=== PATIENT | male | born 1995 | race Hispanic/Latino ===

== ENCOUNTER → 2024-01-12 | Emergency (ER) | payer SELFPAY ==
[~2024-01-12] MED LIST: FAMOTIDINE 20 MG/2 ML VIAL IV ONE; KETOROLAC 30 MG/ML INJ ONE; MAGNES/ALUMIN/SIMET 30ML UCUP ONE; NA CHLORIDE 0.9% 1,000 ML ONE
[2024-01-12 01:21] LABS: Absolute Lymphocytes (CBC) 3.8 K/uL (0.7-4.9); Hematocrit 49.1 % (39.6-49.0); MCV 84.1 fL (80-100); MPV 9.4 fL (7.6-11.3); Platelets 254 thou/uL (152-406); RBC Red Blood Cell Count 5.85 M/uL (4.33-5.43)
[2024-01-12 01:29] LABS: ALT/SGPT 24 U/L (16-61); AST/SGOT 5 U/L (15-37); Alkaline Phosphatase 115 U/L (45-117); BUN Blood Urea Nitrogen 16 mg/dL (7-18); Bicarbonate 25 mEq/L (21-32); Bilirubin Direct 0.2 mg/dL (0-0.2); Bilirubin Indirect, Calculated 0.3 mg/dL (0.2-0.8); Bilirubin Total 0.5 mg/dL (0.2-1.0); Glomerular Filtration Rate 89 ml/min (=/>90); Glucose Level 119 mg/dL (74-106); Lipase 18 U/L (13-75); Magnesium 1.9 mg/dL (1.6-2.4); Potassium 3.5 mEq/L (3.5-5.1); Protein, Total 8.3 g/dL (6.4-8.2); Sodium Level 137 mEq/L (136-145)
[2024-01-12 01:30] LABS: Troponin High Sensitivity < 3.0 pg/mL (<58.9)
--- NOTE | 2024-01-12 02:39 | EDPHYS ---
Physician Documentation [facility] Name: Magen Villa Age: 28 yrs Sex: Male : 1995 Arrival Date: 01/12/2024 Time: 00:52 Bed 19 Private MD: ED Physician Slim Millard HPI: 01/12 01:26 This 28 yrs old Male presents to ER via Ambulatory with complaints of Chest rt Pain. 01:26 Patient presents to the ED with reported chest pains for about 1 month. They are worse rt when he lies down. Patient reports nausea and vomiting earlier today, none currently. Denies any abdominal pain. Of note, patient drinks about 6 beers per day. He denies other acute complaints at this time, symptoms are moderate in severity, no other aggravating or alleviating factors.. Historical: - Allergies: : No Known Allergies; lg3 - Home Meds: : None [Active]; lg3 - PMHx: : None; lg3 - PSHx: : None; lg3 - Immunization history:: Adult Immunizations up to date, Client reports receiving the 2nd dose of the Covid vaccine, Flu vaccine is not up to date. - Social history:: Smoking status: Patient reports the use of cigarette tobacco products, smokes one pack cigarettes per day. Reported history of juuling and/or vaping. Patient uses alcohol, on a daily basis. claims drinking about a 6 pack/day. patient/guardian reports chronic longstanding heavy alcohol consumption. Patient/guardian denies using street drugs. - Family history:: not pertinent. ROS: 01:26 Constitutional: Negative for fever, chills, and weight loss, Respiratory: Negative for rt shortness of breath, cough, wheezing, and pleuritic chest pain, MS/Extremity: Negative for injury and deformity, Skin: Negative for injury, rash, and discoloration, Neuro: Negative for headache, weakness, numbness, tingling, and seizure, Psych: Negative for depression, anxiety, suicide ideation, homicidal ideation, and hallucinations, : Cardiovascular: Positive for chest pain, Negative for edema, : Abdomen/GI: Positive for nausea and vomiting, Negative for abdominal pain, Exam: : Constitutional: This is a well developed, well nourished patient who is awake, alert, rt and in no acute distress. Head/Face: Normocephalic, atraumatic. Chest/axilla: Normal chest wall appearance and motion. Nontender with no deformity. No lesions are appreciated. Cardiovascular: Regular rate and rhythm with a normal S1 and S2. No gallops, murmurs, or rubs. Normal PMI, no JVD. No pulse deficits. Respiratory: Lungs have equal breath sounds bilaterally, clear to auscultation and percussion. No rales, rhonchi or wheezes noted. No increased work of breathing, no retractions or nasal flaring. Abdomen/GI: Soft, non-tender, with normal bowel sounds. No distension or tympany. No guarding or rebound. No evidence of tenderness throughout. Skin: Warm, dry with normal turgor. Normal color with no rashes, no lesions, and no evidence of cellulitis. MS/ Extremity: Pulses equal, no cyanosis. Neurovascular intact. Full, normal range of motion. Neuro: Awake and alert, GCS 15, oriented to person, place, time, and situation. Cranial nerves II-XII grossly intact. Motor strength 5/5 in all extremities. Sensory grossly intact. Cerebellar exam normal. Normal gait. 01:26 ECG was reviewed by the Attending Physician. Vital Signs: 00:59 BP 146 / 97; Pulse 111; Resp 19 S; Temp 97.6(TE); Pulse Ox 99% on R/A; Weight 77.11 kg lg3 (R); Height 5 ft. 11 in. (R); 01:39 BP 141 / 93; Pulse 98; Resp 19; Pulse Ox 100% on R/A; tm6 02:30 BP 135 / 91; Pulse 93; Resp 14; Pulse Ox 96% on R/A; Pain 3/10; tm6 02:44 BP 135 / 91; Pulse 88; Resp 17; Temp 98.5; Pulse Ox 98% on R/A; Pain 2/10; tm6 00:59 Body Mass Index 23.71 (77.11 kg, 180.34 cm) lg3 02:30 Pain Scale: Adult tm6 02:44 Pain Scale: Adult tm6 MDM: 00:54 Patient medically screened. rt 03:43 Differential diagnosis: Gastritis, nonspecific chest pain, pancreatitis, acute coronary rt syndrome. HEART Score: History: Slightly Suspicious (0), ECG: Normal (0), Age: < or = 45 years (0), Risk Factors: 1 or 2 risk factors (1), Troponin: < or = 1 x Normal Limit (0), Total Score = 1. Data reviewed: vital signs, nurses notes, lab test result(s), EKG, radiologic studies. I considered the following discharge prescriptions or medication management in the emergency department Medications were administered in the Emergency Department. See MAR. Independent interpretation of the following test(s) in the Emergency Department X-Ray: My interpretation is No consolidation seen on interpretation of x-ray images. Test considered but Not performed: CT: Low suspicion for PE, CT angiogram not indicated. Care significantly affected by the following Social Determinants of Health: Misuse of alcohol and/or drugs. Counseling: I had a detailed discussion with the patient and/or guardian regarding the historical points, exam findings, and any diagnostic results supporting the discharge/admit diagnosis, lab results, radiology results, the need for outpatient follow up, to return to the emergency department if symptoms worsen or persist or if there are any questions or concerns that arise at home. Response to treatment: the patient's symptoms have resolved after treatment. 01/12 00:59 Order name: Basic Metabolic Panel; Complete Time: rt 01/12 00:59 Order name: CBC with Diff; Complete Time: rt 01/12 00:59 Order name: LFT's; Complete Time: : rt 01/12 00:59 Order name: Magnesium; Complete Time: : rt 01/12 00:59 Order name: Troponin HS; Complete Time: : rt 01/12 00:59 Order name: Lipase; Complete Time: : rt 01/12 00:59 Order name: XRAY Chest (1 view) rt 01/12 00:59 Order name: EKG; Complete Time: : rt 01/12 00:59 Order name: Cardiac monitoring; Complete Time: : rt 01/12 00:59 Order name: EKG - Nurse/Tech; Complete Time: 01:05 rt 01/12 00:59 Order name: IV Saline Lock; Complete Time: 01: rt 01/12 00:59 Order name: Labs collected and sent; Complete Time: 01: rt 01/12 00:59 Order name: O2 Per Protocol; Complete Time: 01: rt 01/12 00:59 Order name: O2 Sat Monitoring; Complete Time: : rt EC: Rate is 103 beats/min. Rhythm is regular, Sinus tachycardia with Right bundle branch rt block. Right axis deviation noted. MO interval is normal. QRS interval is normal. QT interval is normal. No Q waves. No ST changes noted. Administered Medications: 01:03 Drug: NS 0.9% IV 1000 ml IV at 1 bolus Per protocol; 1000 mL bolus Route: IV; Rate: 1 mb9 bolus; Site: left antecubital; 02:00 Follow up: Response: No adverse reaction; IV Status: Completed infusion; IV Intake: tm6 1000ml 01:04 Drug: Ketorolac IVP 15 mg IVP once Route: IVP; Site: left antecubital; mb9 01:09 Drug: Alum-Mag Hydroxide-Simeth PO Suspension (200 mg-200 mg-20 mg/5 mL) 30 ml PO once mb9 Route: PO; 01: Drug: Famotidine IVP 20 mg IVP once; dilute with 10 mL 0.9% NaCl; give over 2 minutes mb9 Route: IVP; Site: left antecubital; Disposition Summary: 01/12/24 02:38 Discharge Ordered Notes: Location: Home rt Problem: new rt Symptoms: have improved rt Condition: Stable rt Diagnosis - Acute gastritis rt Followup: rt - With: Rogers Reynoso DO - When: 2 - 3 days - Reason: Discharge Instructions: - Discharge Summary Sheet rt - Gastritis, Adult rt Forms: - Medication Reconciliation Form rt - Thank You Letter rt - Antibiotic Education rt - Prescription Opioid Use rt - Patient Portal Instructions rt - Leadership Thank You Letter rt Prescriptions: - Protonix 40 mg Oral Tablet - take 1 tablet ORAL route once daily; 30 tablet; Refills: 0, Product Selection rt Permitted Signatures: Dispatcher [employer] Pilar Ribera RN RN lg3 Marie Shaw RN RN mb9 Slim Millard MD MD rt Audrey Orta RN tm6
--- NOTE | 2024-01-12 02:39 | ER ---
Nurse's Notes [facility] Name: Magen Villa Age: 28 yrs Sex: Male : 1995 Arrival Date: 01/12/2024 Time: 00:52 Bed 19 Private MD: Diagnosis: Acute gastritis Presentation: 01/12 00:59 Chief complaint: Patient states: chest pain/pressure and increased HR X1 month lg3 worsening at night. exacerbated by laying down. Coronavirus screen: Client denies travel out of the [place] in the last 14 days. At this time, the client does not indicate any symptoms associated with coronavirus-19. Ebola Screen: No symptoms or risks identified at this time. Initial Sepsis Screen: Does the patient meet any 2 criteria? No. Patient's initial sepsis screen is negative. Does the patient have a suspected source of infection? No. Patient's initial sepsis screen is negative. Risk Assessment: Do you want to hurt yourself or someone else? Patient reports no desire to harm self or others. Onset of symptoms is unknown. 00:59 Method Of Arrival: Ambulatory lg3 00:59 Acuity: RON 3 lg3 Triage Assessment: 01:01 General: Appears in no apparent distress. uncomfortable, Behavior is cooperative, lg3 anxious. Pain: Complains of pain in chest Pain does not radiate. Pain currently is 4 out of 10 on a pain scale. EENT: No deficits noted. No signs and/or symptoms were reported regarding the EENT system. Neuro: No deficits noted. Frazier Agitation-Sedation Scale (RASS): 0 - Alert and Calm Level of Consciousness is awake, alert, obeys commands, Oriented to person, place, time, situation. Cardiovascular: Reports chest pain, palpitations, Heart tones S1 S2 present Capillary refill < 3 seconds Clubbing of nail beds is absent JVD is absent Chest pain is described as mild, quality is heaviness, pressure, is located in substernal area episodes are intermittent. Respiratory: No deficits noted. Airway is patent Respiratory effort is even, unlabored, Respiratory pattern is regular, symmetrical. GI: No deficits noted. Abdomen is round non-distended, Bowel sounds present X 4 quads. : No deficits noted. No signs and/or symptoms were reported regarding the genitourinary system. Derm: No signs and/or symptoms reported regarding the dermatologic system. Skin is intact, is healthy with good turgor, Skin is clammy, Skin is pale, Skin temperature is cool. Musculoskeletal: No deficits noted. No signs and/or symptoms reported regarding the musculoskeletal system. Circulation, motion, and sensation intact. Range of motion: intact in all extremities. Historical: - Allergies: 01:01 No Known Allergies; lg3 - Home Meds: 01:01 None [Active]; lg3 - PMHx: 01: None; lg3 - PSHx: 01:01 None; lg3 - Immunization history:: Adult Immunizations up to date, Client reports receiving the 2nd dose of the Covid vaccine, Flu vaccine is not up to date. - Social history:: Smoking status: Patient reports the use of cigarette tobacco products, smokes one pack cigarettes per day. Reported history of juuling and/or vaping. Patient uses alcohol, on a daily basis. claims drinking about a 6 pack/day. patient/guardian reports chronic longstanding heavy alcohol consumption. Patient/guardian denies using street drugs. - Family history:: not pertinent. Screenin:43 [facility] ED Fall Risk Assessment (Adult) History of falling in the last 3 months, tm6 including since admission No falls in past 3 months (0 pts) Confusion or Disorientation No (0 pts) Intoxicated or Sedated No (0 pts) Impaired Gait No (0 pts) Mobility Assist Device Used No (0 pt) Altered Elimination No (0 pt) Score/Fall Risk Level 0 - 2 = Low Risk Oriented to surroundings, Maintained a safe environment. Abuse screen: Denies threats or abuse. Denies injuries from another. Nutritional screening: No deficits noted. Tuberculosis screening: No symptoms or risk factors identified. Assessment: 01:39 General: Appears in no apparent distress. Behavior is calm, cooperative. Pain: tm6 Complains of pain in chest. Pain: Pain currently is 5 out of 10 on a pain scale. Quality of pain is described as squeezing, Pain began 1 day ago. Neuro: Level of Consciousness is awake, alert, obeys commands, Oriented to person, place, time, situation. Cardiovascular: Reports chest pain, Capillary refill < 3 seconds Patient's skin is warm and dry. Rhythm is sinus tachycardia. Respiratory: Airway is patent Respiratory effort is even, unlabored, Respiratory pattern is regular, symmetrical. GI: Abdomen is flat, non-distended, Abd is soft and non tender. : No signs and/or symptoms were reported regarding the genitourinary system. EENT: No signs and/or symptoms were reported regarding the EENT system. Derm: No signs and/or symptoms reported regarding the dermatologic system. Musculoskeletal: No signs and/or symptoms reported regarding the musculoskeletal system. 02:31 Reassessment: Patient and/or family updated on plan of care and expected duration. Pain tm6 level reassessed. Patient is alert, oriented x 3, equal unlabored respirations, skin warm/dry/pink. Patient states feeling better. 02:44 Reassessment: Patient and/or family updated on plan of care and expected duration. Pain tm6 level reassessed. Patient is alert, oriented x 3, equal unlabored respirations, skin warm/dry/pink. Patient states feeling better. Vital Signs: 00:59 BP 146 / 97; Pulse 111; Resp 19 S; Temp 97.6(TE); Pulse Ox 99% on R/A; Weight 77.11 kg lg3 (R); Height 5 ft. 11 in. (R); 01:39 BP 141 / 93; Pulse 98; Resp 19; Pulse Ox 100% on R/A; tm6 02:30 BP 135 / 91; Pulse 93; Resp 14; Pulse Ox 96% on R/A; Pain 3/10; tm6 02:44 BP 135 / 91; Pulse 88; Resp 17; Temp 98.5; Pulse Ox 98% on R/A; Pain 2/10; tm6 00:59 Body Mass Index 23.71 (77.11 kg, 180.34 cm) lg3 02:30 Pain Scale: Adult tm6 02:44 Pain Scale: Adult tm6 ED Course: 00:54 Patient arrived in ED. ra3 00:54 Slim Millard MD is Attending Physician. rt 00:54 Audrey Orta, ARIELLE is Primary Nurse. tm6 01:00 Basic Metabolic Panel Sent. mb9 01:00 CBC with Diff Sent. mb9 01:00 LFT's Sent. mb9 01:00 Magnesium Sent. mb9 01:00 Troponin HS Sent. mb9 01:00 Inserted saline lock: 18 gauge in left antecubital area, using aseptic technique. mb9 01:00 EKG done. tm6 01:01 Triage completed. lg3 01:01 Arm band placed on right wrist. lg3 01:43 Patient has correct armband on for positive identification. Placed in gown. Bed in low tm6 position. Call light in reach. Side rails up X2. Provided Education on: plan of care. Client placed on continuous cardiac and pulse oximetry monitoring. NIBP monitoring applied. monitoring analyst on. Pulse ox on. NIBP on. Door closed. Noise minimized. Lights dimmed. Warm blanket given. Pillow given. 01:45 XRAY Chest (1 view) In Process Unspecified. EDMS 02:38 Rogers Reynoso DO is Referral Physician. rt 02:44 No provider procedures requiring assistance completed. IV discontinued, intact, tm6 bleeding controlled, No redness/swelling at site. Pressure dressing applied. Administered Medications: 01:03 Drug: NS 0.9% IV 1000 ml IV at 1 bolus Per protocol; 1000 mL bolus Route: IV; Rate: 1 mb9 bolus; Site: left antecubital; 02:00 Follow up: Response: No adverse reaction; IV Status: Completed infusion; IV Intake: tm6 1000ml 01:04 Drug: Ketorolac IVP 15 mg IVP once Route: IVP; Site: left antecubital; mb9 01:09 Drug: Alum-Mag Hydroxide-Simeth PO Suspension (200 mg-200 mg-20 mg/5 mL) 30 ml PO once mb9 Route: PO; 01:09 Drug: Famotidine IVP 20 mg IVP once; dilute with 10 mL 0.9% NaCl; give over 2 minutes mb9 Route: IVP; Site: left antecubital; Medication: 02:45 VIS not applicable for this client. tm6 Intake: 02:00 IV: 1000ml; Total: 1000ml. tm6 Outcome: 02:38 Discharge ordered by MD. rt 02:44 Discharged to home ambulatory, with family, tm6 02:44 Condition: stable 02:44 Discharge instructions given to patient, family, Instructed on discharge instructions, follow up and referral plans. medication usage, Demonstrated understanding of instructions, follow-up care, medications, Prescriptions given X 1, 02:45 Patient left the ED. tm6 Signatures: Dispatcher [employer] TOMERMI Pilar Simmons RN RN lg3 Marie Shaw RN RN mb9 Slim Millard MD MD rt Audrey Orta, ARIELLE RN tm6 Ilene Hou ra3
[2024-01-12 03:16] VITALS: BP 135/91; TEMP 98.5; O2SAT 98
--- NOTE | 2024-01-12 20:09 | RAD REPORT ---
EXAM DESCRIPTION: RAD - Chest Single View - 01/12/2024 1:44 am CLINICAL HISTORY: The patient is 28 years old and is Male; CHEST PAIN TECHNIQUE: Frontal view of the chest. COMPARISON: No relevant prior studies available. FINDINGS: Lungs: Unremarkable. No consolidation. Pleural space: Unremarkable. No pneumothorax. Heart: Unremarkable. Mediastinum: Unremarkable. Normal mediastinal contour. Bones/joints: No acute findings. IMPRESSION: No acute findings in the chest. Electronically signed by: Dg Ivan MD 01/12/2024 02:24 AM SPECIAL MACHINE OPERATOR Due to temporary technical issues with the PACS/Fluency reporting system, reports are being signed by the in house radiologists without review as a courtesy to insure prompt reporting. The interpreting radiologist is fully responsible for the content of the report.
--- NOTE | 2024-01-14 15:50 | EKG ---
Test Date: 2024-01-12 Test Time: 01:00:51 [employer] Prescription Clerk: SURAJ MEASUREMENT RESULTS: Intervals: Rate: 103 WY: 136 QRSD: 96 QT: 332 QTc: 434 [place]: P: 73 WY: 136 QRS: 113 T: 56 INTERPRETIVE STATEMENTS: Sinus tachycardia Right axis deviation Incomplete right bundle branch block Abnormal ECG No previous ECG available for comparison Electronically Signed On 01-14-24 15:47:01 [facility] by José Luis Lorenzo
== END ==
LOC: ER 00:52
DX: K29.00 Acute gastritis without bleeding (principal); F17.210 Nicotine dependence, cigarettes, uncomplicated
CPT/HCPCS: 36415; 71045; 80048; 80076; 83690; 83735; 84484; 85025; 93005; 96361; 96374; 96375; 99285; J7030

== ENCOUNTER 2024-11-30 15:22 | Emergency (ER) | payer SELFPAY ==
[2024-11-30] MEDS ORDERED: FAMOTIDINE 20 MG/2 ML VIAL IV ONE (15:46)
[2024-11-30 15:57] LABS: Absolute Basophils 0.1 K/uL (0-0.5); Absolute Eosinophils 0.3 K/uL (0-0.5); Absolute Lymphocytes (CBC) 3.7 K/uL (0.7-4.9); Absolute Monocytes 0.7 K/uL (0.1-1.3); Absolute Neutrophil 5.5 K/uL (1.8-8.0); Basophils % 0.8 % (0-1.3); Eosinophils % 2.8 % (0-4.4); Hematocrit 48.8 % (39.6-49.0); MCHC 34.9 g/dL (32.0-36.0); MCV 83.2 fL (80-100); MPV 9.5 fL (7.6-11.3); Monocytes % 6.8 % (3.3-12.3); Neutrophils % 53.6 % (41.7-73.7); Nucleated Red Blood Cells % 0.1 % (0-0); Platelets 228 thou/uL (152-406); RBC Red Blood Cell Count 5.87 M/uL (4.33-5.43); Red Cell Distribution Width 13.5 % (12.1-15.2)
[2024-11-30 16:14] LABS: Anion Gap 9.2 mEq/L (5.0-15.0); BUN Blood Urea Nitrogen 10 mg/dL (7-18); Bicarbonate 25 mEq/L (21-32); Glomerular Filtration Rate 98 ml/min (=/>90); Glucose Level 120 mg/dL (74-106); Magnesium 1.8 mg/dL (1.6-2.4); Potassium 3.2 mEq/L (3.5-5.1); Sodium Level 137 mEq/L (136-145)
[2024-11-30 16:16] LABS: Troponin High Sensitivity < 3.0 pg/mL (<58.9)
--- NOTE | 2024-11-30 16:50 | RAD REPORT ---
EXAMINATION: ONE VIEW CHEST XR CLINICAL INDICATION: Male, 29 years old.,dizziness, palpitations TECHNIQUE: Frontal chest projection is submitted. Examination is limited by patient positioning and t echnique. COMPARISON: 01/12/2024 FINDINGS: The lungs are well inflated and clear. No pneumothorax or sizable effusion. The heart is normal in s ize. Mediastinal contours are unremarkable. IMPRESSION: No acute intrathoracic abnormalities.
--- NOTE | 2024-11-30 17:08 | RAD REPORT ---
EXAM: CT Chest For Pe Angio TECHNIQUE: CT angiogram of the chest was performed following intravenous contrast administration, inc luding sagittal and coronal as well as maximum intensity projection reformats. One or more of the following dose reduction techniques were used: Automated exposure control, adjustment of the mA and k V according to patient size, and iterative reconstruction. Unless otherwise specified, incidental findings do not require dedicated imaging follow-up. INDICATION: [facility] MAIN PALPITATIONS Bed Name: 6 Y COMPARISON: Chest radiograph of the earlier the same day. FINDINGS: LINES/TUBES: None. PULMONARY ARTERIES: Main pulmonary arteries are normal in caliber. No filling defects within the pul monary arteries to suggest pulmonary embolus. LUNGS AND AIRWAYS: The lungs and central airways are normal without focal abnormality. PLEURA: No effusion or pneumothorax. HEART AND MEDIASTINUM: The visualized thyroid gland is normal. No mediastinal, hilar, or axillary lym phadenopathy. Heart is unremarkable. No pericardial effusion. SOFT TISSUES AND BONES: No acute osseous abnormality. No significant soft tissue finding. UPPER ABDOMEN: Unremarkable. IMPRESSION: No evidence of acute central pulmonary emboli. No suspicious intrathoracic findings.. Given the findings of pulmonary emphysematous changes mentioned above, please correlate clinically fo r a formal diagnosis of pulmonary emphysema. Pulmonary emphysema is considered an independent risk factor for lung cancer, consider evaluating the patient for a low dose CT lung cancer screening progr am.
--- NOTE | 2024-11-30 17:31 | ER ---
Nurse's Notes [facility] Name: Magen Villa Age: 29 yrs Sex: Male : 1995 Arrival Date: 11/30/2024 Time: 15:22 Bed 6 Private MD: Diagnosis: Palpitations;Upper abdominal pain, unspecified;Hypokalemia Presentation: 11/30 15:38 Chief complaint: Patient states: he started having heartburn last night, but then ap3 started feeling "dizzy and bad this morning." patient also reports nausea but no vomiting. Coronavirus screen: At this time, the client does not indicate any symptoms associated with coronavirus-19. Ebola Screen: No symptoms or risks identified at this time. Initial Sepsis Screen: Does the patient meet any 2 criteria? HR > 90 bpm. Does the patient have a suspected source of infection? No. Patient's initial sepsis screen is negative. Risk Assessment: Do you want to hurt yourself or someone else? Patient reports no desire to harm self or others. Onset of symptoms was November 30, 2024. 15:38 Method Of Arrival: Ambulatory ap3 15:38 Acuity: RON 2 ap3 Triage Assessment: 15:41 General: Appears comfortable, Behavior is calm, cooperative, anxious. Pain: Complains ap3 of pain in chest Quality of pain is described as burning. Neuro: Level of Consciousness is awake, alert, obeys commands, Oriented to person, place, time, situation, Gait is steady, Speech is normal. Cardiovascular: Patient's skin is warm and dry. Respiratory: Airway is patent Respiratory effort is even, unlabored, Respiratory pattern is regular, symmetrical. GI: Reports nausea. Historical: - Allergies: 15:40 No Known Allergies; ap3 - Home Meds: 15:40 Tums Oral [Active]; ap3 - PMHx: 15:40 heartburn; ap3 - Immunization history:: Client reports receiving the 2nd dose of the Covid vaccine, Flu vaccine is not up to date. - Infectious Disease History:: Denies. - Social history:: Smoking status: Patient reports the use of cigarette tobacco products, denies chronic smoking, but will smoke occasionally, Patient uses alcohol, on a daily basis. admits to "couple of beers" a day. Screenin:42 [facility] ED Fall Risk Assessment (Adult) History of falling in the last 3 months, ap3 including since admission No falls in past 3 months (0 pts) Confusion or Disorientation No (0 pts) Intoxicated or Sedated No (0 pts) Impaired Gait No (0 pts) Mobility Assist Device Used No (0 pt) Altered Elimination No (0 pt) Score/Fall Risk Level 0 - 2 = Low Risk Oriented to surroundings, Maintained a safe environment, Educated pt \\T\\ family on fall prevention, incl call for assistance when getting out of bed, Assessed \\T\\ reinforced patient's understanding of fall precautions, Hourly rounding (assess needs \\T\\ fall precautionary measures) done, Used ambulatory aids as needed (educated on \\T\\ assisted with), Used gait belt as appropriate. Abuse screen: Denies threats or abuse. Nutritional screening: No deficits noted. Tuberculosis screening: No symptoms or risk factors identified. Assessment: 15:52 General: Appears in no apparent distress. comfortable, well groomed, well developed, kc6 Behavior is calm, cooperative, appropriate for age, quiet. Pain: Complains of pain in chest Pain does not radiate. Quality of pain is described as burning. Neuro: Level of Consciousness is awake, alert, obeys commands, Oriented to person, place, time, situation, Appropriate for age Reports dizziness. Cardiovascular: Reports chest pain, lightheadedness, nausea, palpitations, Heart tones S1 S2 present Capillary refill < 3 seconds Rhythm is regular. Respiratory: Airway is patent Trachea midline Respiratory effort is even, unlabored, Respiratory pattern is regular, symmetrical. GI: Abdomen is flat, non-distended, Bowel sounds present X 4 quads. Abd is soft and non tender X 4 quads. Reports upper abdominal pain, indigestion, nausea, Patient currently denies diarrhea, vomiting. : No signs and/or symptoms were reported regarding the genitourinary system. EENT: No signs and/or symptoms were reported regarding the EENT system. Derm: No signs and/or symptoms reported regarding the dermatologic system. Skin is intact, is healthy with good turgor, Skin is dry, Skin is pale, Skin temperature is warm. Musculoskeletal: No signs and/or symptoms reported regarding the musculoskeletal system. Circulation, motion, and sensation intact. Range of motion: intact in all extremities. 16:19 Reassessment: Patient appears in no apparent distress at this time. No changes from kc6 previously documented assessment. Patient and/or family updated on plan of care and expected duration. Pain level reassessed. Patient is alert, oriented x 3, equal unlabored respirations, skin warm/dry/pink. 17:27 Reassessment: Patient appears in no apparent distress at this time. No changes from kc6 previously documented assessment. Patient and/or family updated on plan of care and expected duration. Pain level reassessed. Patient is alert, oriented x 3, equal unlabored respirations, skin warm/dry/pink. Vital Signs: 15:38 BP 150 / 94; Pulse 113; Resp 19; Temp 98.1(O); Pulse Ox 100% on R/A; Weight 81.65 kg; ap3 Height 5 ft. 9 in. ; 15:40 Pulse 137; ap3 15:51 BP 155 / 97; Pulse 99; Resp 16 S; Pulse Ox 98% on R/A; kc6 16:19 BP 135 / 78; Pulse 94; Resp 16 S; Pulse Ox 99% on R/A; kc6 17:27 BP 132 / 89; Pulse 102; Resp 18 S; Pulse Ox 100% on R/A; kc6 15:38 Body Mass Index 26.58 (81.65 kg, 175.26 cm) ap3 ED Course: 15:26 Patient arrived in ED. ra3 15:28 Fer Devine DO is Attending Physician. ms3 15:36 Halley Hicks, RN is Primary Nurse. kc6 15:40 Triage completed. ap3 15:42 Patient has correct armband on for positive identification. Bed in low position. Call ap3 light in reach. Client placed on continuous cardiac and pulse oximetry monitoring. NIBP monitoring applied. monitor worker on. Pulse ox on. NIBP on. 15:42 Initial lab(s) drawn, by or, sent to lab. EKG done, by ED staff, reviewed by Fer Devine DO. Inserted saline lock: 18 gauge in right antecubital area, using aseptic technique. Blood collected. Flushed with 10 mL NS. Patient maintains SpO2 saturation greater than 95% on room air. 15:43 Arm band placed on left wrist. ap3 16:21 XRAY Chest (1 view) In Process Unspecified. EDMS 16:36 CT Chest For PE Angio In Process Unspecified. EDMS 17:05 Patient requests food. kc6 17:29 Rogers Reynoso DO is Referral Physician. ms3 17:45 No provider procedures requiring assistance completed. IV discontinued, intact, kc6 bleeding controlled, No redness/swelling at site. Pressure dressing applied. Administered Medications: 15:51 Drug: Famotidine IVP 20 mg IVP once; dilute with 10 mL 0.9% NaCl; give over 2 minutes kc6 Route: IVP; Site: right antecubital; 16:19 Follow up: Response: No adverse reaction kc6 17:31 Drug: Potassium Chloride PO 40 mEq PO once Route: PO; kc6 Medication: 17:45 VIS not applicable for this client. kc6 Outcome: 17:30 Discharge ordered by MD. ms3 17:45 Discharged to home ambulatory, with family, kc6 17:45 Condition: improved 17:45 Discharge instructions given to patient, Instructed on discharge instructions, follow up and referral plans. medication usage, Demonstrated understanding of instructions, follow-up care, medications, Prescriptions given X 1, 18:07 Patient left the ED. kc6 Signatures: Dispatcher [employer] EDNV Suzan Pham, RN RN ap3 Fer Devine DO DO ms3 Halley Hicks RN RN kc6 Ilene Hou ra3
--- NOTE | 2024-11-30 17:31 | EDPHYS ---
Physician Documentation [facility] Name: Magen Villa Age: 29 yrs Sex: Male : 1995 Arrival Date: 11/30/2024 Time: 15:22 Bed 6 Private MD: ED Physician Fer Devine HPI: 11/30 15:57 This 29 yrs old Male presents to ER via Ambulatory with complaints of ms3 Dizziness - Heartburn. 15:57 Magen Villa is a 29-year-old male who presents to the Emergency Department ms3 with complaints of palpitations, dizziness, and heartburn. He reports experiencing symptoms of heartburn for the past year. This current episode started this morning. He has taken seven Tums between last night and this morning to alleviate the symptoms. He has not eaten anything today. He describes the sensation as pressure.. Historical: - Allergies: 15:40 No Known Allergies; ap3 - Home Meds: 15:40 Tums Oral [Active]; ap3 - PMHx: 15:40 heartburn; ap3 - Immunization history:: Client reports receiving the 2nd dose of the Covid vaccine, Flu vaccine is not up to date. - Infectious Disease History:: Denies. - Social history:: Smoking status: Patient reports the use of cigarette tobacco products, denies chronic smoking, but will smoke occasionally, Patient uses alcohol, on a daily basis. admits to "couple of beers" a day. ROS: 15:57 Constitutional: Negative for fever, and chills. ms3 15:57 MS/Extremity: Negative for injury and deformity, Skin: Negative for injury, rash, and discoloration, 15:57 Cardiovascular: Positive for palpitations, 15:57 Abdomen/GI: Positive for abdominal pain, 15:57 Neuro: Positive for dizziness, Exam: 15:57 Constitutional: This is a well developed, well nourished patient who is awake, alert, ms3 and in no acute distress. 15:57 Respiratory: Lungs have equal breath sounds bilaterally, clear to auscultation and percussion. No rales, rhonchi or wheezes noted. No increased work of breathing, no retractions or nasal flaring. Abdomen/GI: Soft, non-tender, with normal bowel sounds. No distension or tympany. No guarding or rebound. No evidence of tenderness throughout. Skin: Warm, dry with normal turgor. Normal color with no rashes, no lesions, and no evidence of cellulitis. 15:57 Cardiovascular: Rate: tachycardic, Rhythm: regular, Pulses: no pulse deficits are appreciated, Heart sounds: normal, normal S1and S2, 16:37 ECG was reviewed by the Attending Physician. ms3 Vital Signs: 15:38 BP 150 / 94; Pulse 113; Resp 19; Temp 98.1(O); Pulse Ox 100% on R/A; Weight 81.65 kg; ap3 Height 5 ft. 9 in. ; 15:40 Pulse 137; ap3 15:51 BP 155 / 97; Pulse 99; Resp 16 S; Pulse Ox 98% on R/A; kc6 16:19 BP 135 / 78; Pulse 94; Resp 16 S; Pulse Ox 99% on R/A; kc6 17:27 BP 132 / 89; Pulse 102; Resp 18 S; Pulse Ox 100% on R/A; kc6 15:38 Body Mass Index 26.58 (81.65 kg, 175.26 cm) ap3 MDM: 15:39 Medical Screening Exam initiated ms3 15:57 Differential diagnosis: cardiac arrhythmia, idiopathic dizziness, vertigo. ms3 17:30 Data reviewed: vital signs, nurses notes, lab test result(s), EKG, radiologic studies, ms3 CT scan, plain films, and as a result, I will discharge patient. I considered the following discharge prescriptions or medication management in the emergency department Medications were administered in the Emergency Department. See MAR. 17:32 Counseling: I had a detailed discussion with the patient and/or guardian regarding the ms3 historical points, exam findings, and any diagnostic results supporting the discharge/admit diagnosis, lab results, radiology results, the need for outpatient follow up, to return to the emergency department if symptoms worsen or persist or if there are any questions or concerns that arise at home. Special discussion: I discussed with the patient/guardian in detail that at this point there is no indication for admission to the hospital. It is understood, however, that if the symptoms persist or worsen the patient needs to return immediately for re-evaluation. ED course: Discussed labs, CT chest PE protocol, EKG, chest x-ray findings with patient and his mother. Discussed CT PE with radiologist and patient does not have emphysematous changes of lungs. Discussed this with the patient and his mother. Troponin undetectable. Chest x-ray negative. Patient heart rate 97 on reevaluation. Abdomen benign. Patient tolerating p.o. Patient to follow-up with primary care physician in 2 to 3 days. Patient understands and agrees with plan. All questions were answered. Return precautions discussed include worsening symptoms, or any other concerns.. 11/30 15:39 Order name: Basic Metabolic Panel; Complete Time: 16:21 ms3 11/30 15:39 Order name: CBC with Diff; Complete Time: 16:06 ms3 11/30 15:39 Order name: D-Dimer; Complete Time: 16:14 ms3 11/30 15:39 Order name: Magnesium; Complete Time: 16:21 ms3 11/30 15:39 Order name: Troponin HS; Complete Time: 16:21 ms3 11/30 15:39 Order name: XRAY Chest (1 view); Complete Time: 17:20 ms3 11/30 16:21 Order name: CT Chest For PE Angio; Complete Time: 17:33 ms3 11/30 15:39 Order name: Cardiac monitoring; Complete Time: 15:42 ms3 11/30 15:39 Order name: EKG - Nurse/Tech; Complete Time: 15:42 ms3 11/30 15:39 Order name: IV Saline Lock; Complete Time: 15:42 ms3 11/30 15:39 Order name: Labs collected and sent; Complete Time: 15:42 ms3 11/30 15:39 Order name: O2 Per Protocol; Complete Time: 15:42 ms3 11/30 15:39 Order name: O2 Sat Monitoring; Complete Time: 15:42 ms3 EC:37 Rate is 114 beats/min. Rhythm is regular. Right axis deviation noted. IN interval is ms3 normal. QRS interval is normal. Clinical impression: Sinus tachycardia. Interpreted by me. Reviewed by me. Administered Medications: 15:51 Drug: Famotidine IVP 20 mg IVP once; dilute with 10 mL 0.9% NaCl; give over 2 minutes kc6 Route: IVP; Site: right antecubital; 16:19 Follow up: Response: No adverse reaction kc6 17:31 Drug: Potassium Chloride PO 40 mEq PO once Route: PO; kc6 Disposition Summary: 11/30/24 17:30 Discharge Ordered Notes: Location: Home ms3 Condition: Stable ms3 Diagnosis - Palpitations ms3 - Upper abdominal pain, unspecified ms3 - Hypokalemia ms3 Followup: ms3 - With: Rogers Reynoso DO - When: 2 - 3 days - Reason: Recheck today's complaints Discharge Instructions: - Discharge Summary Sheet ms3 - Abdominal Pain, Adult ms3 - Palpitations ms3 - Hypokalemia ms3 Forms: - Medication Reconciliation Form ms3 - Antibiotic Education ms3 - Prescription Opioid Use ms3 - Patient Portal Instructions ms3 - Leadership Thank You Letter ms3 Prescriptions: - Pepcid 20 mg Oral Tablet - take 1 tablet ORAL route every 12 hours for 5 days; 10 tablet; Refills: 0, ms3 Product Selection Permitted Signatures: Dispatcher [employer] EDSuzan Rodríguez, RN RN ap3 Fer Devine DO DO ms3 Halley Hicks RN RN kc6 Corrections: (The following items were deleted from the chart) 15:39 15:39 Chest Single View+[email or web address] ordered. EDMS EDMS
[2024-11-30] MEDS ORDERED: POTASSIUM CL SA 10 MEQ TAB PO ONE (17:38)
[2024-12-01 17:01] VITALS: BP 132/89; TEMP 98.1; O2SAT 100
--- NOTE | 2024-12-03 12:02 | EKG ---
Test Date: 2024-11-30 Test Time: 15:39:51 [place] Inspector: ALP MEASUREMENT RESULTS: Intervals: Rate: 114 CA: 140 QRSD: 102 QT: 314 QTc: 432 Holt: P: 78 CA: 140 QRS: 114 T: 55 INTERPRETIVE STATEMENTS: Sinus tachycardia Otherwise normal ECG Compared to ECG 01/12/2024 01:00:51 Right-axis deviation no longer present Incomplete right bundle-branch block no longer present Electronically Signed On 12-03-24 12:00:02 [employer]NAGER [employer] by Baudilio Garrett
== END 2024-11-30 18:07 | disposition home or self-care (01) ==
LOC: ER 15:22
DX: E87.6 Hypokalemia (principal); R10.10 Upper abdominal pain, unspecified
CPT/HCPCS: 36415; 71045; 71275; 80048; 83735; 84484; 85025; 85379; 93005; 96374; 99285; Q9967